=== PATIENT | male | born 1970 | race Caucasian/White ===

== ENCOUNTER 2019-02-09 18:26 | Emergency (ER) | payer BC, OTHER ==
--- NOTE | 2019-02-09 18:46 | Emergency Department Record ---
History of Present Illness - General Chief Complaint: Hypertension Stated Complaint: HIGH BLOOD PRESSURE Time Seen by Provider: 02/09/19 18:29 Source: Patient Mode of Arrival: Ambulatory Limitations: No limitations - History of Present Illness Initial Comments: 48 yo male presents to ED for evaluation of elevated blood pressure for the past 2 days. Patient denies headache, chest pain symptoms, but does report that his vision is decreased from his baseline. Patient reports that he currently takes Coreg 12.5 mg BID, had been taking Lisinopril/HCTZ previously but was discontinued due to dizziness. Patient currently sees Dr. Mirella Lou, denies health problems at his baseline. Complaint: Other Onset/Timin -: Days(s) Timing: Unsure History of Same: No History of Trauma: No Severity: Moderate Improves With: Nothing Worsens With: Nothing Associated Symptoms: Denies other symptoms - [place] Coma Scale Eye Response: (4) Open spontaneously Motor Response: (6) Obeys commands Verbal Response: (5) Oriented [place] Total: 15 - Related Data Home Medications Medication Instructions Recorded Confirmed Last Taken Carvedilol 12.5 mg PO DAILY 02/09/19 02/09/19 Unknown Previous Rx's Medication Instructions Recorded Furosemide [Lasix] 20 mg PO DAILY #3 tablet 02/09/19 Allergies Allergy/AdvReac Type Severity Reaction Status Date / Time No Known Drug Allergies Allergy Verified 02/09/19 18:45 Review of Systems Constitutional: Denies: Chills, Fever, Malaise, Night sweats Eyes: Reports: Vision change. Denies: Eye discharge, Eye pain ENT: Denies: Congestion, Ear pain, Epistaxis Respiratory: Denies: Cough, Dyspnea Cardiovascular: Denies: Chest pain, Dyspnea on exertion Endocrine: Denies: Fatigue, Heat or cold intolerance Gastrointestinal: Denies: Abdominal pain, Nausea, Vomiting Genitourinary: Denies: Incontinence, Retention Musculoskeletal: Denies: Arthralgia, Back pain Skin: Denies: Bruising, Change in color Neurological: Denies: Abnormal gait, Confusion, Headache, Numbness, Tingling, Tremors Psychiatric: Denies: Anxiety Hematological/Lymphatic: Denies: Anemia, Blood Clots Physical Exam - General General Appearance: Alert, Oriented x3, Cooperative, No acute distress Limitations: No limitations - Head Head exam: Atraumatic, Normocephalic, Normal inspection Head exam detail: negative: Abrasion, Contusion, Diez's sign, General tenderness, Hematoma, Laceration - Eye Eye exam: Normal appearance. negative: Conjunctival injection, Periorbital swelling, Periorbital tenderness, Scleral icterus - ENT Ear exam: negative: Auricular hematoma, Auricular trauma Nasal Exam: negative: Active bleeding, Discharge, Dried blood, Foreign body Mouth exam: negative: Drooling, Laceration, Muffled voice, Tongue elevation - Neck Neck exam: Normal inspection. negative: Meningismus, Tenderness - Respiratory Respiratory exam: Normal lung sounds bilaterally. negative: Respiratory distress, Rhonchi, Stridor, Wheezes - Cardiovascular Cardiovascular Exam: Regular rate, Normal rhythm, Normal heart sounds - GI/Abdominal GI/Abdominal exam: Soft. negative: Distended, Rebound, Rigid, Tenderness - Rectal Rectal exam: Deferred - exam: Deferred - Extremities Extremities exam: Normal inspection, Pedal edema (1+ edema bilaterally). negative: Tenderness - Back Back exam: Denies: CVA tenderness (R), CVA tenderness (L) - Neurological Neurological exam: Alert, Normal gait, Oriented X3 - Psychiatric Psychiatric exam: Normal affect, Normal mood - Skin Skin exam: Normal color. negative: Abrasion Type of lesion: negative: abrasion Course - Reevaluation(s) Reevaluation #1: 02/09/19 19:05 EKG: NSR 76 Normal axis, IVCD Incomplete RBBB No acute ST-T wave changes Reevaluation #2: 02/09/19 19:32 Laboratory studies were reviewed and appear grossly unremarkable for an acute process. Reevaluation #3: 02/09/19 19:38 repeat blood pressure 150/93 mm Hg, patient reports that he is feeling at his baseline. patient and his SO were updated on all results, patient appears stable for discharge at this time. Patient is asking for a water pill due to his ankle swelling, will prescribe 3 days of lasix 20 mg with instructions to follow-up with his PCP in 3-5 days as directed for further evaluation. Medical Decision Making - Lab Data Result diagrams: 02/09/19 18:55 02/09/19 18:55 Disposition Disposition: Discharge Clinical Impression: Hypertension Qualifiers: Hypertension type: unspecified Qualified Code(s): I10 - Essential (primary) hypertension Disposition: Home, Self-Care Condition: (2) Stable Instructions: Hypertension (ED) Additional Instructions: Return to ED if your symptoms worsen or if you have any concerns. Lasix as directed. Follow-up with your family doctor in 3-5 days as directed. Prescriptions: Furosemide [Lasix] 20 mg PO DAILY #3 tablet Forms: Patient Portal Access Time of Disposition: 19:40 Quality - Quality Measures Quality Measures: N/A - Blood Pressure Screening Does Patient Have Any of the Following: Active Dx of HTN Blood Pressure Classification: Hypertensive Reading Systolic Measurement: 163 Diastolic Measurement: 129 Screening for High Blood Pressure: Patient Exclusion, Hx of HTN [[id number]]
[2019-02-09 19:06] LABS: ABSOLUTE NEUTROPHIL COUNT 4.47; BASO % 0.3 % (0-6); EOS % 2.4 % (0-6); GRAN % 72.7 % (47-80); HEMATOCRIT 42.9 % (42.0-52.0); HEMOGLOBIN 13.9 gm/dl (14.0-18.0); LYMPH % 16.1 % (16-45); MEAN CELL VOLUME 96.8 fl (81-97); MEAN CORPUSCULAR HGB CONC 32.4 g/dl (32-36); MEAN PLATELET VOLUME 9.8 fl (7.4-10.4); MONO % 8.5 % (0-9); PLATELET COUNT 222 K/uL (130-400); RED BLOOD COUNT 4.43 M/uL (4.40-5.70); RED CELL DISTRIBUTION WIDTH 13.8 % (11.5-14.5); WHITE BLOOD COUNT W/O DIFF 6.2 K/uL (4.2-12.2)
[2019-02-09 19:08] LABS: MEAN CORPUSCULAR HEMOGLOBIN 31.3 pg (27-33)
[2019-02-09 19:13] LABS: BLOOD UREA NITROGEN 15 mg/dL (6-20); CREATININE 0.8 mg/dL (0.7-1.2); EST GLOMERULAR FILTRATION RATE > 60 mL/min
[2019-02-09 19:14] LABS: TOTAL PROTEIN 6.9 g/dL (6.6-8.7)
[2019-02-09 19:16] LABS: GLUCOSE,RANDOM 119 mg/dL (74-109)
[2019-02-09 19:18] LABS: ALT/SGPT 32 U/L (<41)
[2019-02-09 19:19] LABS: ALB/GLOB RATIO 1.6 (1.1-1.8); ALBUMIN 4.2 g/dL (4.0-5.0); ALKALINE PHOSPHATASE 86 U/L (40-129); AST/SGOT 24 U/L (10.0-50.0)
== END 2019-02-09 19:48 | disposition home or self-care (01) ==
LOC: ER 18:26
DX: I10 Essential (primary) hypertension (principal); R60.0 Localized edema
CPT/HCPCS: 80053; 85025; 93005; 93010; 99284